=== PATIENT | female | born 1960 | race Caucasian/White ===

== ENCOUNTER 2018-11-02 11:38 | Emergency (ER) | payer BC, OTHER ==
--- NOTE | 2018-11-02 12:32 | ED Physician Documentation ---
PD HPI FOCAL NEURO - Stated complaint Stated Complaint: L CHIN/NECK NUMBNESS/TINGLY-HEAD PX - Chief complaint Chief Complaint: Neuro - History obtained from History obtained from: Patient - History of Present Illness Timing - onset: How many days ago (3) Timing - duration: Days (3) Timing - details: Gradual onset, Still present Severity of deficit: Moderate Weakness: No: Face, Arm, Hand, Leg Numbness: Face (Just in the lower aspect of the face along the jawline and along the left anterior neck around to the side of the neck and has progressed to also feeling uncomfortable with intermittent pains at the left upper neck and left side of the neck below the ear. She denies any weakness of the shoulder neck or face. No problems with swallowing or speech.), Left. No: Arm, Hand, Leg Associated symptoms: Neck pain. No: Headache (but some pain left side and back of neck), Nausea / vomiting, Fall, Head injury Contributing factors: negative: Anticoagulated, Vascular dz Baseline status: positive: A&OX3, ambulatory, indep Similar symptoms before: Has not had sx before Recently seen: Not recently seen Review of Systems Constitutional: denies: Fever, Chills, Myalgias Eyes: denies: Loss of vision, Decreased vision, Photophobia Ears: denies: Loss of hearing Nose: denies: Rhinorrhea / runny nose, Congestion Throat: denies: Sore throat Cardiac: denies: Chest pain / pressure Respiratory: denies: Dyspnea, Cough GI: denies: Abdominal Pain, Nausea, Vomiting Skin: denies: Rash, Lesions Musculoskeletal: reports: Neck pain (left upper neck yesterday into today). denies: Back pain Neurologic: reports: Numbness. denies: Focal weakness, Difficulty speaking PD PAST MEDICAL HISTORY - Past Medical History Past Medical History: Yes Cardiovascular: None Respiratory: None Neuro: None Endocrine/Autoimmune: HyPOthyroidism GI: GERD, Hepatitis [employer]: None : None HEENT: None Psych: None Musculoskeletal: None Derm: None - Past Surgical History Past Surgical History: Yes General: Cholecystectomy HEENT: Tonsil/Adenoidectomy - Present Medications Home Medications: Ambulatory Orders Medication Instructions Recorded Confirmed Levothyroxine Sodium [Synthroid] 137 mcg PO DAILY 11/02/18 11/02/18 RX: Naproxen 375 mg PO BID #20 tablet 11/02/18 RX: Valacyclovir HCl [Valacyclovir] 1,000 mg PO TID #21 tablet 11/02/18 dexAMETHasone [Decadron] 4 mg PO DAILY #5 tablet 11/02/18 - Allergies Allergies/Adverse Reactions: Allergies Allergy/AdvReac Type Severity Reaction Status Date / Time No Known Drug Allergies Allergy Verified 11/02/18 12:03 - Social History Does the pt smoke?: No Smoking Status: Never smoker Does the pt drink ETOH?: Yes Does the pt have substance abuse?: No - Immunizations Immunizations are current?: Yes PD ED PE NORMAL - Vitals Vital signs reviewed: Yes - General General: Alert and oriented X 3, No acute distress, Well developed/nourished - HEENT HEENT: Atraumatic - Neck Neck: Supple, no meningeal sign, No adenopathy, No JVD, No bruit - Cardiac Cardiac: RRR, No murmur - Respiratory Respiratory: Clear bilaterally - Abdomen Abdomen: Soft, Non tender - Derm Derm: Normal color, Warm and dry, No rash (Faint area of red spots on the left upper cervical area. She had been pressing in the area however and it might be just imprints from her pushing there. No vesicles are seen. There is some skin sensitivity to the left side of the neck and just under the jawline on the left side.) - Neuro Neuro: Alert and oriented X 3, fans clerk 2-12 intact (except for some mildly decreased sensation left mandible and anterior neck area. ), No motor deficit, Normal speech Results - Vitals Vitals: Vital Signs - 24 hr 11/02/18 11/02/18 11:59 14:25 Temperature 36.8 C 36.9 C Heart Rate 86 86 Respiratory 16 20 Rate Blood Pressure 191/95 H 175/71 H O2 Saturation 99 97 Oxygen O2 Source Room air - Labs Labs: Laboratory Tests 11/02/18 11/02/18 11/02/18 13:15 13:15 13:15 ESR 10 D-Dimer < 200.0 L Sodium 141 Potassium 4.0 Chloride 104 Carbon Dioxide 26 Anion Gap 11.0 BUN 15 Creatinine 0.8 Estimated GFR (MDRD) 74 L Glucose 86 Calcium 9.4 Total Bilirubin 0.7 AST 31 ALT 36 Alkaline Phosphatase 70 Total Protein 7.8 Albumin 4.6 Globulin 3.2 Albumin/Globulin Ratio 1.4 Lipase 36 PD MEDICAL DECISION MAKING - ED course Complexity details: considered differential (The patient has numbness and some tingling type pain in the left lower face and on the neck. This seems most the V1 distribution of the trigeminal nerve. However a little lower and on the neck could also be a C3 radiculitis. She has no weakness of the area. She has no other focal deficits. She was complaining of some pain in the neck area so consider vascular process and can screen with a d-dimer test. Otherwise consider inflammatory such as vasculitis and we will screen with a sed rate as well. Given the progression of initial numbness and now some discomfort just exactly in the nerve root distribution, I would also consider early shingles though she does not have a rash as yet.), d/w patient Departure - Departure Disposition: 01 Home, Self Care Clinical Impression: Cervical neuritis, Facial neuritis Condition: Stable Record reviewed to determine appropriate education?: Yes Instructions: ED Cervical Radiculopathy Follow-Up: JEREMIAS VERNON MD [Primary Care Provider] - Prescriptions: dexAMETHasone [Decadron] 4 mg PO DAILY #5 tablet RX: Naproxen 375 mg PO BID #20 tablet RX: Valacyclovir HCl [Valacyclovir] 1,000 mg PO TID #21 tablet Comments: This sounds like an irritation of the nerve to the lower face and neck. This is sudden and like the nerve itself and not coming from the central area (like the brain). Blood test shah no sign of autoimmune cause and no likely vascular cause. We will treat this with anti-inflammatories of nonsteroidal and steroidal. Also sounds likely to be early shingles and so adding an antiviral for the next week as well. Recheck if not improved over the next several days to week and trending better and gone by a week or so. Discharge Date/Time: 11/02/18 14:25
[2018-11-02] MEDS ORDERED: DEXAMETHASONE 10 MG/ML VIAL PO STA (12:59)
[2018-11-02] MEDS ORDERED: CHERRY SYRUP 10 ML UDC PO ONE (12:59)
[2018-11-02] MEDS ORDERED: ACYCLOVIR 200 MG CAPSULE PO STA (12:59)
[2018-11-02] MEDS ORDERED: ACETAMINOPHEN 325 MG TABLET PO STA (12:59)
[2018-11-02] MEDS ORDERED: NAPROXEN 250 MG TABLET PO STA (12:59)
[2018-11-02 13:39] LABS: ALBUMIN 4.6 g/dL (3.2-5.5); ALBUMIN/GLOBULIN RATIO 1.4 (1.0-2.2); BILIRUBIN,TOTAL 0.7 mg/dL (0.2-1.0); CALCIUM 9.4 mg/dL (8.5-10.3); CREATININE 0.8 mg/dL (0.4-1.0); TOTAL PROTEIN 7.8 g/dL (6.7-8.2)
[2018-11-02 14:26] VITALS: BP 175/71
== END 2018-11-02 14:25 | disposition home or self-care (01) ==
LOC: ED 11:38
DX: G58.8 Other specified mononeuropathies (principal); G51.8 Other disorders of facial nerve
CPT/HCPCS: 36415; 80053; 83690; 85379; 85651; 99283; 99284; A9270

== ENCOUNTER 2023-10-17 10:36 | Outpatient (CLI) | payer BC, OTHER ==
--- NOTE | 2023-10-17 16:55 | DEXA Report ---
PROCEDURE: Dexa Spine and/or Hip INDICATIONS: POST MENOPAUSAL TECHNIQUE: Dual energy x-ray absorptiometry (DXA) was performed on a [employer] System. Regions measur ed are the AP Spine, femoral neck, and if needed forearm. COMPARISON: None FINDINGS: Lumbar Spine: Bone Mineral Density: 0.981 g/cm/cm,T score: -1.7. Left Femoral Neck: Bone Mineral Density: 0.796 g/cm/cm, T score: -1.7. Left Hip: Bone Mineral Density: 0.870 g/cm/cm,T score: -1.1. FRAX risk factors: Family history, rheumatoid arthritis 10 year risk of major osteoporotic fracture: 33.8% major osteoporotic fracture = hip, clinical vertebral, proximal humerus, distal forearm 10 year risk of hip fracture: 2.5% (T score greater or equal to -1.0: NORMAL) (T score from -1.1 to -2.4: OSTEOPENIA) (T score less than or equal to -2.5 to: OSTEOPOROSIS) Impression: By WHO criteria, this patient has low bone density (osteopenia). Patients with diagnosis of osteoporosis or osteopenia should have regular bone mineral density assess ment. For those eligible for Medicare, routine testing is allowed once every 2 years. Testing frequ ency can be increased for patients who have rapidly progressing disease or for those who are receivin g medical therapy to restore bone mass. Reviewed by: Pastor Renee MD on 10/17/2023 4:54 PM PDT Approved by: Pastor Renee MD on 10/17/2023 4:54 PM PDT Station ID: [id number]
== END 2023-10-17 10:37 | disposition home or self-care (01) ==
LOC: DI 10:36
PROVIDERS: ATTEND Nurse Practitioner Family
DX: M85.89 Other specified disorders of bone density and structure, multiple sites (principal); Z78.0 Asymptomatic menopausal state